=== PATIENT | male | born 1970 | race Caucasian/White ===

== ENCOUNTER 2018-03-31 06:25 | Day surgery (SDC) | payer OTHER ==
[~2018-03-31] VITALS: Ht 172.7 cm; Wt 93.0 kg
[2018-03-31] MEDS ORDERED: BUPIVACAINE-MPF 0.25% 30 ML VIAL INJ ONE (08:56)
[2018-03-31] MEDS ORDERED: ceFAZolin 1,000 MG VIAL ONE (09:00)
[2018-03-31] MEDS ORDERED: fentaNYL 0.05 MG/ML VIAL ONE (09:03)
[2018-03-31] MEDS ORDERED: MIDAZOLAM 2 MG/2 ML VIAL ONE (09:03)
[2018-03-31] MEDS ORDERED: LIDOCAINE 2% 100 MG/5 ML SYR IVP ONE (10:13)
[2018-03-31] MEDS ORDERED: PROPOFOL 200 MG/20 ML VIAL IV ONE (10:13)
[2018-03-31] MEDS ORDERED: SEVOFLURANE 250 ML BTL INH ONE (10:13)
[2018-03-31] MEDS ORDERED: HYDROmorphone 1 MG/ML AMP IVP PRN ×2 (10:40→11:15)
[2018-03-31] MEDS ORDERED: ONDANSETRON 4 MG/2 ML VIAL IVP PRN (10:40)
[2018-03-31] MEDS ORDERED: MORPHINE SULFATE 4 MG/ML SYR IV PRN (11:15)
[2018-03-31] MEDS ORDERED: MORPHINE SULFATE 2 MG/ML SYR IVP PRN (11:15)
[2018-03-31] MEDS ORDERED: HYDROcodone/APAP 5/325 MG 1 TAB TAB PO PRN (11:15)
[2018-03-31] MEDS ORDERED: ONDANSETRON 4 MG/2 ML VIAL IV PRN (11:15)
== END 2018-03-31 14:30 | disposition home or self-care (01) ==
LOC: MDS 06:25 → MMU 06:26 → MDS 14:30
PROVIDERS: ATTEND Surgery
DX: D17.6 Benign lipomatous neoplasm of spermatic cord (principal); I12.9 Hypertensive chronic kidney disease with stage 1 through stage 4 chronic kidney disease, or unspecified chronic kidney disease; N18.9 Chronic kidney disease, unspecified; D64.9 Anemia, unspecified; E11.22 Type 2 diabetes mellitus with diabetic chronic kidney disease; F03.90 Unspecified dementia, unspecified severity, without behavioral disturbance, psychotic disturbance, mood disturbance, and anxiety; G40.909 Epilepsy, unspecified, not intractable, without status epilepticus; J45.909 Unspecified asthma, uncomplicated; K21.9 Gastro-esophageal reflux disease without esophagitis; E66.9 Obesity, unspecified; F17.210 Nicotine dependence, cigarettes, uncomplicated; Z79.899 Other long term (current) drug therapy; Z98.890 Other specified postprocedural states
CPT/HCPCS: 55520; 71045; 93005; J0690; J2001; J2250; J2704; J3010; J3490; J7060; J7120